=== PATIENT | female | born 1955 | race Two or more races ===

== ENCOUNTER 2024-10-08 06:03 | Day surgery (SDC) | payer OTHER ==
[2024-10-03 13:58] VITALS: BMI 21.0
[2024-10-08] MEDS ORDERED: MIDAZOLAM HCL 2 MG/2 ML SINGLE DOSE VIAL ONE (07:07)
[2024-10-08] MEDS ORDERED: PROPOFOL 20 ML ONE (07:07)
[2024-10-08] MEDS ORDERED: ACETAMINOPHEN INJECTION 100 ML ONE (07:10)
[2024-10-08] MEDS ORDERED: BUPIVACAINE HCL/PF 0.5% (5MG/ML) 10 ML VIAL ONE (07:10)
[2024-10-08] MEDS ORDERED: BUPIVACAINE LIPOSOME/PF (EXPAREL) 266 MG/20 ML VIAL ONE (07:10)
[2024-10-08] MEDS ORDERED: ONDANSETRON 4 MG/2 ML VIAL IVPUSH PRN (07:14)
[2024-10-08] MEDS ORDERED: oxyCODONE HCL 5 MG TABLET PO PRN ×2 (07:14)
[2024-10-08] MEDS ORDERED: LACTATED RINGERS SOLUTION 1,000 ML IV SCH ×2 (07:15→10:30)
[2024-10-08] MEDS ORDERED: VANCOMYCIN 1,000 MG VIAL (RESTRICTED TO ID ONLY) ONE ×2 (07:28→08:02)
[2024-10-08] MEDS ORDERED: TRANEXAMIC ACID 1000 MG/10 ML VIAL ONE ×2 (07:28→08:02)
[2024-10-08] MEDS ORDERED: ceFAZolin SODIUM 1 GM VIAL ONE (08:02)
[2024-10-08] MEDS ORDERED: ONDANSETRON 4 MG/2 ML VIAL ONE (08:59)
[2024-10-08] MEDS ORDERED: DEXAMETHASONE SOD PHOSPHATE 4 MG/1 ML VIAL ONE (08:59)
[2024-10-08] MEDS ORDERED: KETOROLAC TROMETHAMINE 30 MG/1 ML VIAL ONE (09:53)
[2024-10-08] MEDS ORDERED: MAG HYDROX/AL HYDROX/SIMETH 30 ML UNIT-DOSE CUP PO PRN (10:24)
[2024-10-08] MEDS ORDERED: MECLIZINE HCL 25 MG TABLET (FP) PO PRN (10:30)
[2024-10-08] MEDS: ONDANSETRON 4 MG/2 ML VIAL IVPUSH PRN (10:40)
[2024-10-08] MEDS ORDERED: PROMETHAZINE HCL 25 MG/1 ML VIAL ONE (11:08)
[2024-10-08] MEDS: PROMETHAZINE HCL 25 MG/1 ML VIAL IVPB ONE (11:20)
[2024-10-08] MEDS ORDERED: ACETAMINOPHEN 1000 MG/100 ML BAG IVPB PRN (14:30)
[2024-10-08] MEDS: CEFAZOLIN 2 GM/D5W 2 GRAM/50 ML ML IVPB SCH (17:31)
[2024-10-08] MEDS: ATORVASTATIN CA 40 MG TABLET (FP) PO SCH (21:52)
[2024-10-08] MEDS: SENNOSIDES/DOCUSATE COMBO (SENNA PLUS) TABLET (UD) PO SCH (21:52)
[2024-10-08] MEDS ORDERED: KETOROLAC TROMETHAMINE 15 MG/ML VIAL IVPUSH PRN (22:01)
[2024-10-08] MEDS: VANCOMYCIN/WATER FOR INJ (PEG) 1 GM/200 ML BAG IVPB ONE (22:17)
[2024-10-08] MEDS ORDERED: KETOROLAC TROMETHAMINE 15 MG/ML VIAL ONE (23:22)
[2024-10-08] MEDS: KETOROLAC TROMETHAMINE 15 MG/ML VIAL IVPUSH PRN (23:27)
[2024-10-09 02:17] VITALS: RESP 18; TEMP 98.4
[2024-10-09 06:59] VITALS: PULSE 65
[2024-10-09 08:11] LABS: HEMATOCRIT 31.6 % (34.1-44.9); HEMOGLOBIN 10.2 g/dL (11.2-15.7); MCHC 32.3 g/dl (32.2-35.5); MEAN CELL VOLUME 92.9 fl (79.4-94.8); MEAN PLT VOLUME 10.2 fl (9.4-12.3); PLATELET COUNT 179 x10^3/uL (182-369); RDW 13.4 % (12.4-16.4)
[2024-10-09 08:40] LABS: CALCIUM 8.8 mg/dl (8.5-10.1); CREATININE 0.6 mg/dl (0.6-1.3); POTASSIUM 4.3 mmol/L (3.5-5.1)
[2024-10-09] MEDS: PANTOPRAZOLE 40 MG TABLET PO SCH (09:22)
[2024-10-09] MEDS: amLODIPine BESYLATE 5 MG TABLET (FP) PO SCH (09:22)
[2024-10-09] MEDS: ASPIRIN 325 MG TABLET PO SCH (09:22)
[2024-10-09] MEDS: MULTIVITAMINS (DAILY MVI) TABLET (FP) PO SCH (09:22)
[2024-10-09 09:24] VITALS: BP 129/60
== END 2024-10-09 12:59 | disposition home or self-care (01) ==
LOC: SUATTDRO 06:03 → FASUSAT 06:03 → FASU 06:03 → FM/S 11:38 → FASUSAT 10-09 12:59
PROC: 0LS40ZZ Reposition Left Upper Arm Tendon, Open Approach (ICD-10-PCS; 2024-10-08)
PROC: 0RRK00Z Replacement of Left Shoulder Joint with Reverse Ball and Socket Synthetic Substitute, Open Approach (ICD-10-PCS; principal; 2024-10-08 08:27)
DX: M19.012 Primary osteoarthritis, left shoulder (principal); M75.122 Complete rotator cuff tear or rupture of left shoulder, not specified as traumatic; M75.22 Bicipital tendinitis, left shoulder
CPT/HCPCS: 23430; 23472; C1776; 36415; 73030-TC-LT-FY; 80048; 85027; 88304-TC; 88305-TC; 88311-TC; 94760; 97116-GP; 97161-GP; C1713; C1757; C1889; J0131; J0666

== ENCOUNTER 2024-10-14 15:17 | Emergency (ER) | payer OTHER ==
[2024-10-14 15:29] VITALS: BP 125/70; PULSE 88; RESP 16; TEMP 98.9; BMI 20.7
[2024-10-14] MEDS ORDERED: predniSONE 10 MG TABLET (UD) ONE (15:38)
[2024-10-14] MEDS: predniSONE 20 MG TABLET (UD) PO ONE (15:40)
== END 2024-10-14 15:45 | disposition home or self-care (01) ==
LOC: FER 15:17
DX: L23.9 Allergic contact dermatitis, unspecified cause (principal)
CPT/HCPCS: 99283-25